=== PATIENT | male | born 1995 | race American Indian/Alaskan Native ===

== ENCOUNTER 2017-10-28 00:31 | Emergency (ER) | payer SELFPAY ==
[2017-10-28 01:21] LABS: Hematocrit 44.6 % (35.5-45.6); Hemoglobin 14.5 gm/dl (11.8-15.2); Mean Corpuscular HGB Conc 33 % (32-34); Mean Corpuscular Hemoglobin 32 pg (28-32); Mean Corpuscular Volume 99 fl (84-94); Platelet Count 200 K/mm3 (140-440); Red Blood Count 4.52 M/mm3 (3.65-5.03); Red Cell Distribution Width 13.2 % (13.2-15.2)
[2017-10-28 01:38] LABS: BUN/Creatinine Ratio 7; Blood Urea Nitrogen 8 mg/dL (9-20); Calcium 9.4 mg/dL (8.4-10.2); Hemolysis Index 8
[2017-10-28 02:49] VITALS: BP 120/78
--- NOTE | 2017-10-28 04:18 | Emergency Department Report ---
ED Seizure HPI - General Chief Complaint: Seizure Stated Complaint: SEIZURE Time Seen by Provider: 10/28/17 04:13 Source: EMS Mode of arrival: Stretcher Limitations: No Limitations - History of Present Illness Initial Comments: Patient had a seizure at home approximately 2-3 hours prior to arrival, there is no particular prodrome, patient awakened on the floor, with report that he had hit the back of his head. Episode was witnessed by friend, who reports that he had 1 minute episode, and typical postictal period of a couple of minutes. He feels that his normal baseline, has no pain in his head or his neck , no recent injuries, and no systemic illness. He reports that he is current with his Depakote, which he takes 3 times per day, but nursing notes reports the patient has been noncompliant with medications for the past 1-2 days.. Onset/Timin -: Sudden, hour(s) Witnessed:: Yes Trauma: Yes (hit back of head) Seizure History: known seizure disorder Place: home Possible Precipitating Event: none Associated Symptoms: denies other symptoms Treatments Prior to Arrival: none - Related Data Home Medications Medication Instructions Recorded Confirmed Last Taken Depakote 500 mg PO TID 10/28/17 10/28/17 Unknown Previous Rx's Medication Instructions Recorded Last Taken Type Divalproex Sodium [Depakote] 500 mg PO TID #90 tablet. 10/28/17 Unknown Rx Allergies Allergy/AdvReac Type Severity Reaction Status Date / Time No Known Allergies Allergy Verified 10/28/17 00:47 ED Review of Systems ROS: Stated complaint: SEIZURE Other details as noted in HPI Constitutional: no symptoms reported Eyes: denies: eye pain ENT: denies: ear pain, throat pain Respiratory: denies: cough, shortness of breath, wheezing Cardiovascular: denies: chest pain, palpitations Endocrine: no symptoms reported Gastrointestinal: denies: abdominal pain, nausea, diarrhea Neurological: denies: headache, weakness, paresthesias Psychiatric: denies: anxiety, depression Hematological/Lymphatic: denies: easy bleeding, easy bruising ED Past Medical Hx - Past Medical History Previous Medical History?: Yes Hx Seizures: Yes - Surgical History Past Surgical History?: No - Social History Smoking Status: Current Some Day Smoker Substance Use Type: None - Medications Home Medications: Home Medications Medication Instructions Recorded Confirmed Last Taken Type Depakote 500 mg PO TID 10/28/17 10/28/17 Unknown History Divalproex Sodium [Depakote] 500 mg PO TID #90 tablet. 10/28/17 Unknown Rx ED Physical Exam - General Limitations: No Limitations General appearance: alert, in no apparent distress, other (resting comfortably, sleeping, awakens easily had examination) - Head Head exam: Present: atraumatic, normocephalic - Eye Eye exam: Present: PERRL, EOMI - ENT ENT exam: Present: normal exam, mucous membranes moist, TM's normal bilaterally - Neck Neck exam: Present: normal inspection, full ROM. Absent: tenderness - Respiratory Respiratory exam: Present: normal lung sounds bilaterally - Cardiovascular Cardiovascular Exam: Present: regular rate, normal heart sounds - GI/Abdominal GI/Abdominal exam: Present: soft, normal bowel sounds. Absent: tenderness - Rectal Rectal exam: Present: deferred - Extremities Exam Extremities exam: Present: normal inspection - Back Exam Back exam: Present: normal inspection - Neurological Exam Neurological exam: Present: alert, oriented X3, motor sensory deficit (chronic hemiparesis on left side). Absent: CN II-XII intact, normal gait (unable to walk) - Psychiatric Psychiatric exam: Present: normal affect, normal mood - Skin Skin exam: Present: warm, dry ED Course Vital Signs 10/28/17 10/28/17 10/28/17 00:35 00:43 00:46 Temperature 98.0 F Pulse Rate 89 86 Respiratory 20 21 Rate Blood Pressure 140/91 140/91 O2 Sat by Pulse 95 95 93 Oximetry 10/28/17 10/28/17 10/28/17 00:54 01:00 01:16 Temperature Pulse Rate 87 88 Respiratory 20 20 20 Rate Blood Pressure 120/78 120/78 O2 Sat by Pulse 97 91 Oximetry 10/28/17 10/28/17 10/28/17 01:30 01:46 02:00 Temperature Pulse Rate 86 85 82 Respiratory 19 19 19 Rate Blood Pressure 120/78 120/78 124/74 O2 Sat by Pulse 92 92 93 Oximetry 10/28/17 10/28/17 02:16 02:30 Temperature Pulse Rate 81 81 Respiratory 18 18 Rate Blood Pressure 120/78 120/78 O2 Sat by Pulse 95 96 Oximetry - Reevaluation(s) Reevaluation #1: 10/28/17 05:33 Patient appears somewhat better clinically after hydration with normal saline, at ED Medical Decision Making - Lab Data Result diagrams: 10/28/17 01:05 10/28/17 01:05 - Radiology Data Radiology results: report reviewed (CT scan of brain is negative for acute injury, with no interval ventricular hemorrhage, no mass effect, and no skull fracture.) - Medical Decision Making Patient appears to have had an uncomplicated grand mal seizure, lasting a brief episode, with normal postictal period. He has recovered, he had struck his head , is not sore in the back of the head, has no operable defect, has normal CT scan, and is neurologically normal. Patient was remedicated with Depakote, and will be discharged home with same prescription, and on repeat examination, reports that he has been out, and that he has normally been getting his prescription from [place], but has not had time to find a physician in [place]. We will give him a tide over prescription until he can get established. Critical Care Time: No Critical care attestation.: If time is entered above; I have spent that time in minutes in the direct care of this critically ill patient, excluding procedure time. ED Disposition Clinical Impression: Seizure Disposition: DC-01 TO HOME OR SELFCARE Is pt being admited?: No Does the pt Need Aspirin: No Condition: Stable Prescriptions: Divalproex Sodium [Depakote] 500 mg PO TID #90 tablet. Referrals: PRIMARY CARE, [Primary Care Provider] - 3-5 Days Time of Disposition: 05:45
--- NOTE | 2017-10-28 05:57 | Cat Scan Report ---
FINAL REPORT PROCEDURE: CT HEAD/BRAIN WO CON TECHNIQUE: Computerized tomography of the head was performed without contrast material. HISTORY: seizure, hit occiput, neuro normal COMPARISON: No prior studies are available for comparison. FINDINGS: Skull and scalp: Normal. Paranasal sinuses: Normal. Ventricles and subarachnoid spaces: Normal. Cerebrum: No evidence of hemorrhage, acute infarction or mass . Cerebellum and brainstem: No evidence of hemorrhage, acute infarction or mass. Vasculature: Normal. Comments: None. IMPRESSION: Normal Examination
== END 2017-10-28 06:15 | disposition home or self-care (01) ==
LOC: ED 00:31
DX: G40.409 Other generalized epilepsy and epileptic syndromes, not intractable, without status epilepticus (principal); G81.94 Hemiplegia, unspecified affecting left nondominant side; F17.200 Nicotine dependence, unspecified, uncomplicated
CPT/HCPCS: 36415; 70450; 80048; 82962; 85027